=== PATIENT | female | born 1960 | race Caucasian/White ===

== ENCOUNTER 2020-06-29 06:05 | Inpatient (IN) | payer BC, SELFPAY ==
[2020-06-27 10:41] LABS: BASOPHILS # (AUTO) 0.1 K/uL (0.0-0.2); BASOPHILS % (AUTO) 0.7 % (0.0-2.0); EOSINOPHILS # (AUTO) 0.1 K/uL (0.0-0.4); EOSINOPHILS % (AUTO) 1.8 % (0.0-4.0); HEMATOCRIT 45.4 % (36-48); HEMOGLOBIN 15.3 g/dL (12.0-16.0); LYMPHOCYTES # (AUTO) 2.8 K/uL (1.0-5.5); LYMPHOCYTES % (AUTO) 35.8 % (20.5-51.5); MEAN CORPUSCULAR HEMOGLOBIN 30 pg (27-31); MEAN CORPUSCULAR HGB CONC 34 % (32-36); MEAN CORPUSCULAR VOLUME 89 fL (79.0-98.0); MONOCYTES # (AUTO) 0.4 K/uL (0.0-1.0); NEUTROPHILS # (AUTO) 4.4 K/uL (1.8-7.7); NEUTROPHILS % (AUTO) 56.7 % (40.0-70.0); PLATELET COUNT (AUTO) 267 K/uL (130-430); RED CELL DISTRIBUTION WIDTH 14.3 % (9.0-15.0); WHITE BLOOD COUNT (AUTO) 7.7 K/uL (4.8-10.8)
[2020-06-27 10:47] LABS: BILIRUBIN,URINE NEGATIVE (NEGATIVE); BLOOD, URINE NEGATIVE (NEGATIVE); CLARITY/URINE CLEAR (CLEAR); COLOR,URINE YELLOW (YELLOW); GLUCOSE,URINE NEGATIVE (NEGATIVE); KETONES,URINE NEGATIVE (NEGATIVE); LEUKOCYTE ESTERASE ,URINE 1+ (NEGATIVE); NITRITE, URINE NEGATIVE (NEGATIVE); PROTEIN URINE NEGATIVE (NEGATIVE); UROBILINOGEN,URINE 0.2 (0.2-1.0)
[2020-06-27 10:52] LABS: INR 0.9 (0.8-1.2); PROTHROMBIN TIME 9.5 SECS (9.5-12.5)
[2020-06-27 11:38] LABS: ALBUMIN 4.5 g/dL (3.4-4.8); CALCIUM 9.1 mg/dL (8.4-11.0); CREATININE 0.78 mg/dL (0.55-1.30); POTASSIUM 4.1 mmol/L (3.5-5.1); TOTAL BILIRUBIN 0.3 mg/dL (0.0-1.0)
[2020-06-27 12:20] LABS: RBC,URINE 0-3 /HPF (0-3)
[2020-06-27 12:21] LABS: BACTERIA,URINE RARE /HPF (None Seen)
[~2020-06-29] VITALS: Ht 167.6 cm; Wt 64.4 kg
[2020-06-29] MEDS ORDERED: LEVOFLOXACIN 500 MG/D5W 100 ML IV ONE (07:00)
[2020-06-29] MEDS ORDERED: metroNIDAZOLE 500 mg/NS 100 ML PREMIX IV ONE (07:00)
[2020-06-29] MEDS ORDERED: PRO40 PO (07:51)
[2020-06-29] MEDS ORDERED: LOSA25TA3 PO (07:51)
[2020-06-29] MEDS ORDERED: ATEN50TA PO (07:51)
[2020-06-29] MEDS ORDERED: ONDANSETRON HCL 4 MG/2 ML VIAL IVP PRN (09:30)
[2020-06-29] MEDS ORDERED: METOCLOPRAMIDE HCL 10 MG/2 ML VIAL IVP PRN (09:30)
[2020-06-29] MEDS ORDERED: LR 1,000 ML IV SCH (09:30)
[2020-06-29] MEDS ORDERED: KETOROLAC TROMETHAMINE 30 MG VIAL IVP PRN ×3 (09:30)
[2020-06-29] MEDS ORDERED: ZOLPIDEM TARTRATE 5 MG TABLET PO PRN (09:45)
[2020-06-29] MEDS ORDERED: MORPHINE PCA 50 mg/50 mL NS 50 ML IV PRN (10:00)
[2020-06-29] MEDS ORDERED: NALOXONE HCL 0.4 MG/ML AMP (NARCAN) IVP PRN (10:00)
[2020-06-29] MEDS ORDERED: KETOROLAC TROMETHAMINE 30 MG VIAL ONE (10:15)
[2020-06-29] MEDS ORDERED: MORPHINE 4 MG/ML INJ. SYRINGE IVP PRN (10:15)
[2020-06-29] MEDS ORDERED: MORPHINE 4 MG/ML INJ. SYRINGE ONE (10:30)
[2020-06-29] MEDS ORDERED: MORPHINE PCA 50 mg/50 mL NS 50 ML IV ONE (10:57)
[2020-06-29] MEDS: ALBUTEROL SULFATE 0.083% 2.5 MG/3 ML VIAL.NEB INH SCH ×3 (11:00→20:13)
[2020-06-29 11:05] VITALS: BP_SYST 106
[2020-06-29 12:00] VITALS: BP_SYST 116
[2020-06-29] MEDS ORDERED: METOCLOPRAMIDE HCL 10 MG/2 ML VIAL IVP ONE (12:30)
[2020-06-29] MEDS ORDERED: PROPOFOL 200MG/ 20ML VIAL (DIPRIVAN) IV ONE (12:30)
[2020-06-29] MEDS ORDERED: NEOSTIGMINE METHYLSULFATE 1 MG/ML, 10 ML VIAL IVP ONE (12:30)
[2020-06-29] MEDS ORDERED: ONDANSETRON HCL 4 MG/2 ML VIAL IVP ONE (12:30)
[2020-06-29] MEDS ORDERED: fentaNYL CITRATE/PF 100 MCG/2 ML AMP IVP ONE (12:30)
[2020-06-29] MEDS ORDERED: MIDAZOLAM HCL 5 MG/5 ML VIAL IVP ONE (12:30)
[2020-06-29] MEDS ORDERED: LR 1,000 ML IV.SOLN IV ONE (12:30)
[2020-06-29] MEDS ORDERED: GLYCOPYRROLATE 0.2 MG/ML VIAL IJ ONE (12:30)
[2020-06-29] MEDS ORDERED: ePHEDrine sulfate 50 MG/ML VIAL IVP ONE (12:30)
[2020-06-29] MEDS ORDERED: SEVOFLURANE 15 MIN GAS INH ONE (12:30)
[2020-06-29] MEDS ORDERED: DEXAMETHASONE SOD PHOSPHATE 4 MG/ML VIAL IVP ONE (12:30)
[2020-06-29] MEDS ORDERED: ROCURONIUM BROMIDE 10 MG/ML (ZEMURON) IV ONE (12:30)
[2020-06-29] MEDS ORDERED: NS IRRIG SOLN 1000 ML IR ONE (12:30)
[2020-06-29] MEDS: D5LR 1,000 ML IV SCH ×3 (13:10→22:14)
[2020-06-29] MEDS: CLINDAMYCIN 300 MG in D5W 50 ML IV SCH ×3 (14:18→23:44)
[2020-06-29] MEDS: LEVOFLOXACIN 500 MG/D5W 100 ML IV SCH (15:37)
[2020-06-29 16:00] VITALS: BP_SYST 109
[2020-06-29 20:00] VITALS: BP_SYST 123
[2020-06-29] MEDS: ONDANSETRON 4 MG ODT TAB PO PRN (21:36)
[2020-06-30 00:21] VITALS: BP_SYST 111
[2020-06-30] MEDS: CLINDAMYCIN 300 MG in D5W 50 ML IV SCH ×3 (06:03→18:26)
[2020-06-30] MEDS: ONDANSETRON 4 MG ODT TAB PO PRN ×2 (07:51→16:11)
[2020-06-30] MEDS ORDERED: BISACODYL 10 MG/SUPPOSITORY RC PRN (08:00)
[2020-06-30 08:04] VITALS: BP_SYST 133
[2020-06-30] MEDS: ALBUTEROL SULFATE 0.083% 2.5 MG/3 ML VIAL.NEB INH SCH ×4 (08:24→19:40)
[2020-06-30] MEDS: ATENOLOL 50 MG TABLET (TENORMIN) PO SCH ×2 (08:49→08:56)
[2020-06-30] MEDS: PANTOPRAZOLE SODIUM 40 MG TAB PO SCH (08:49)
[2020-06-30] MEDS ORDERED: ATEN50TA PO (08:56)
[2020-06-30] MEDS ORDERED: PANTOPRAZOLE SODIUM 40 MG/VIAL (PROTONIX) IVP SCH (09:00)
[2020-06-30] MEDS: LOSARTAN POTASSIUM 25 MG TABLET PO SCH (09:05)
[2020-06-30] MEDS: D5LR 1,000 ML IV SCH ×2 (09:06→16:01)
[2020-06-30 12:00] VITALS: BP_SYST 146
[2020-06-30] MEDS: LEVOFLOXACIN 500 MG/D5W 100 ML IV SCH (13:13)
[2020-06-30] MEDS: ACETAMINOPHEN 500 MG TABLET PO PRN ×2 (14:46→20:47)
[2020-06-30 16:00] VITALS: BP_SYST 125
[2020-06-30 20:42] VITALS: BP_SYST 122
[2020-06-30] MEDS: SENNOSIDES 8.6 MG TABLET PO SCH (20:46)
[2020-07-01] MEDS: D5LR 1,000 ML IV SCH (00:12)
[2020-07-01] MEDS: CLINDAMYCIN 300 MG in D5W 50 ML IV SCH ×2 (00:12→06:03)
[2020-07-01 00:31] VITALS: BP_SYST 140; BP_SYST 150
[2020-07-01] MEDS: ACETAMINOPHEN 500 MG TABLET PO PRN ×3 (03:24→19:38)
[2020-07-01] MEDS: ONDANSETRON 4 MG ODT TAB PO PRN (07:46)
[2020-07-01] MEDS: PANTOPRAZOLE SODIUM 40 MG TAB PO SCH (07:47)
[2020-07-01] MEDS ORDERED: SUMAtriptan SUCCINATE 50 MG TABLET PO ONE (07:47)
[2020-07-01 08:00] VITALS: BP_SYST 144
[2020-07-01] MEDS: LOSARTAN POTASSIUM 25 MG TABLET PO SCH (08:02)
[2020-07-01 08:15] LABS: BASOPHILS % (AUTO) 0.5 % (0.0-2.0); EOSINOPHILS # (AUTO) 0.2 K/uL (0.0-0.4); EOSINOPHILS % (AUTO) 2.3 % (0.0-4.0); HEMATOCRIT 37.8 % (36-48); HEMOGLOBIN 12.7 g/dL (12.0-16.0); LYMPHOCYTES # (AUTO) 2.2 K/uL (1.0-5.5); LYMPHOCYTES % (AUTO) 30.9 % (20.5-51.5); MEAN CORPUSCULAR HEMOGLOBIN 30 pg (27-31); MEAN CORPUSCULAR HGB CONC 34 % (32-36); MEAN CORPUSCULAR VOLUME 89 fL (79.0-98.0); MONOCYTES # (AUTO) 0.5 K/uL (0.0-1.0); MONOCYTES % (AUTO) 6.8 % (1.7-9.3); NEUTROPHILS # (AUTO) 4.3 K/uL (1.8-7.7); NEUTROPHILS % (AUTO) 59.5 % (40.0-70.0); PLATELET COUNT (AUTO) 211 K/uL (130-430); RED BLOOD CELL COUNT(AUTO) 4.24 MIL/uL (4.2-6.2); RED CELL DISTRIBUTION WIDTH 14.4 % (9.0-15.0); WHITE BLOOD COUNT (AUTO) 7.2 K/uL (4.8-10.8)
[2020-07-01] MEDS: ATENOLOL 50 MG TABLET (TENORMIN) PO SCH (09:00)
[2020-07-01] MEDS: ALBUTEROL SULFATE 0.083% 2.5 MG/3 ML VIAL.NEB INH SCH ×3 (09:51→15:00)
[2020-07-01] MEDS ORDERED: SUMAtriptan SUCCINATE 50 MG TABLET PO PRN (10:00)
[2020-07-01 16:00] VITALS: BP_SYST 132
[2020-07-01 19:35] VITALS: BP_SYST 141
[2020-07-01] MEDS: SENNOSIDES 8.6 MG TABLET PO SCH (19:38)
[2020-07-01] MEDS ORDERED: ATENOLOL 50 MG TABLET (TENORMIN) PO SCH (21:00)
[2020-07-02 00:55] VITALS: BP_SYST 142
[2020-07-02] MEDS: ALBUTEROL SULFATE 0.083% 2.5 MG/3 ML VIAL.NEB INH SCH (07:00)
[2020-07-02 07:25] VITALS: BP_SYST 142
[2020-07-02 07:45] VITALS: BP_SYST 142
[2020-07-02] MEDS: PANTOPRAZOLE SODIUM 40 MG TAB PO SCH (08:13)
[2020-07-02] MEDS: LOSARTAN POTASSIUM 25 MG TABLET PO SCH (08:14)
[2020-07-02] MEDS: ACETAMINOPHEN 500 MG TABLET PO PRN (08:20)
[2020-07-02 08:59] VITALS: BP_SYST 142
== END 2020-07-02 10:00 | disposition home or self-care (01) | DRG 743 ==
LOC: SMU 06:05 → STU 11:26
PROVIDERS: ADMIT Obstetrics & Gynecology Gynecology; ATTEND Obstetrics & Gynecology Gynecology
PROC: 0UT70ZZ Resection of Bilateral Fallopian Tubes, Open Approach (ICD-10-PCS; 2020-06-29)
PROC: 0UT20ZZ Resection of Bilateral Ovaries, Open Approach (ICD-10-PCS; principal; 2020-06-29 07:30)
DX: D27.0 Benign neoplasm of right ovary (principal); D25.9 Leiomyoma of uterus, unspecified; I10 Essential (primary) hypertension; K21.9 Gastro-esophageal reflux disease without esophagitis; Z20.828 Contact with and (suspected) exposure to other viral communicable diseases; G47.00 Insomnia, unspecified; M85.80 Other specified disorders of bone density and structure, unspecified site; Z80.3 Family history of malignant neoplasm of breast; Z82.49 Family history of ischemic heart disease and other diseases of the circulatory system; Z88.0 Allergy status to penicillin
CPT/HCPCS: 36415; 71046-TC; 80053; 81000-TC; 85025; 85610-TC; 85730-TC; 86886; 86900; 86901; 87081; 87086; 88108; 88305; 88307; 93005; 94010; 94640; 94760; G0378; J1100; J1885; J1956; J2250; J2270; J2405; J2704; J2710; J2765; J3010; J3490; J7060; J7120; J7613; Q0162; U0003

== ENCOUNTER 2024-05-23 10:47 | Emergency (ER) | payer OTHER, BC ==
[~2024-05-23] VITALS: Ht 170.2 cm; Wt 62.1 kg
[~2024-05-23 10:47] MED LIST: ATEN50TA PO; LOSA-412 PO; PRO40 PO
[2024-05-23 10:54] VITALS: BP_SYST 144; PULSE 85; RESP 18; TEMP 98.3; O2SAT 97
[2024-05-23] MEDS: IBUPROFEN 800 MG TABLET PO ONE (11:52)
[2024-05-23] MEDS ORDERED: SOM350 PO (14:46)
[2024-05-23] MEDS ORDERED: IBUP-1969 PO (14:46)
[2024-05-23 14:57] VITALS: BP_SYST 144; PULSE 85; RESP 18; TEMP 98.3; O2SAT 97
== END 2024-05-23 14:54 | disposition home or self-care (01) ==
LOC: SED 10:47
DX: S16.1XXA Strain of muscle, fascia and tendon at neck level, initial encounter (principal); M25.512 Pain in left shoulder; R51.9 Headache, unspecified; Z88.0 Allergy status to penicillin; Z88.5 Allergy status to narcotic agent; Z79.899 Other long term (current) drug therapy; V43.52XA Car driver injured in collision with other type car in traffic accident, initial encounter; Y93.89 Activity, other specified; Y92.89 Other specified places as the place of occurrence of the external cause; Y99.8 Other external cause status
CPT/HCPCS: 70450-TC; 72040; 73030; 99284; J7030